=== PATIENT | male | born 1970 | race Caucasian/White ===

== ENCOUNTER 2018-08-27 11:27 | Emergency (ER) | payer MEDICARE, MEDICAID ==
[~2018-08-27] VITALS: Ht 193 cm; Wt 118.2 kg
[2018-08-27 11:41] VITALS: BP 146/82
[2018-08-27] MEDS ORDERED: ketorolac trometh inj. 60 MG/2 ML VIAL IM ONE (13:50)
[2018-08-27] MEDS ORDERED: HYDR-4353 PO (13:55)
[2018-08-27] MEDS ORDERED: CLON-527 PO (13:55)
[2018-08-27] MEDS ORDERED: TRAZ-218 PO (13:55)
== END 2018-08-27 14:04 | disposition home or self-care (01) ==
LOC: ER 11:28
DX: G89.29 Other chronic pain (principal); F41.9 Anxiety disorder, unspecified; Z76.0 Encounter for issue of repeat prescription; J45.909 Unspecified asthma, uncomplicated; Z88.6 Allergy status to analgesic agent; Z88.0 Allergy status to penicillin; Z59.0 Homelessness
CPT/HCPCS: 96372; 99283; J1885

== ENCOUNTER 2018-11-12 13:48 | Emergency (ER) | payer MEDICARE, MEDICAID ==
[~2018-11-12] VITALS: Ht 193 cm; Wt 113.6 kg
[~2018-11-12 13:48] MED LIST: CLON-527 PO; TRAZ-218 PO
[2018-11-12 13:52] VITALS: BP 117/85
[2018-11-12] MEDS ORDERED: ONDA4TAB6 PO (14:42)
[2018-11-12] MEDS ORDERED: HYDR-4353 PO (14:42)
[2018-11-12] MEDS ORDERED: acetaminophen 325mg tablet PO ONE (14:45)
[2018-11-12] MEDS ORDERED: ketorolac tromethamine 15mg/ml inj. IM ONE (14:50)
== END 2018-11-12 16:01 | disposition home or self-care (01) ==
LOC: ER 13:49
DX: S83.094A Other dislocation of right patella, initial encounter (principal); M23.8X1 Other internal derangements of right knee; J45.909 Unspecified asthma, uncomplicated; G89.29 Other chronic pain; Z98.890 Other specified postprocedural states; Z88.5 Allergy status to narcotic agent; Z88.0 Allergy status to penicillin; Z56.0 Unemployment, unspecified; X50.1XXA Overexertion from prolonged static or awkward postures, initial encounter; Y93.01 Activity, walking, marching and hiking; Y92.89 Other specified places as the place of occurrence of the external cause; Y99.9 Unspecified external cause status
CPT/HCPCS: 29505; 73564; 96372; 99284; J1885

== ENCOUNTER 2018-12-03 09:33 | Outpatient (CLI) | payer MEDICARE, MEDICAID ==
[~2018-12-03 09:33] MED LIST changes: +HYDR-4353 PO; +ONDA4TAB6 PO
[2018-12-03 09:36] VITALS: BP 149/95
== END 2018-12-03 10:05 | disposition home or self-care (01) ==
LOC: ORTHO 09:33
PROVIDERS: ATTEND Nurse Practitioner Family
DX: S83.421A Sprain of lateral collateral ligament of right knee, initial encounter (principal); J45.909 Unspecified asthma, uncomplicated; G89.29 Other chronic pain; Z98.890 Other specified postprocedural states; Z88.5 Allergy status to narcotic agent; Z88.0 Allergy status to penicillin; Z56.0 Unemployment, unspecified; X50.1XXA Overexertion from prolonged static or awkward postures, initial encounter; Y93.01 Activity, walking, marching and hiking; Y92.89 Other specified places as the place of occurrence of the external cause; Y99.9 Unspecified external cause status
CPT/HCPCS: 99213

== ENCOUNTER 2019-01-06 12:40 | Outpatient (CLI) | payer MEDICARE, MEDICAID ==
[~2019-01-06 12:40] MED LIST changes: -HYDR-4353 PO
== END 2019-01-06 23:59 | disposition home or self-care (01) ==
LOC: RAD 12:40
PROVIDERS: ATTEND Nurse Practitioner Family
DX: S83.421D Sprain of lateral collateral ligament of right knee, subsequent encounter (principal); M25.861 Other specified joint disorders, right knee; J45.909 Unspecified asthma, uncomplicated; G89.29 Other chronic pain; X58.XXXA Exposure to other specified factors, initial encounter; Y93.89 Activity, other specified; Y92.89 Other specified places as the place of occurrence of the external cause; Y99.8 Other external cause status
CPT/HCPCS: 73721

== ENCOUNTER 2019-02-11 06:47 | Day surgery (SDC) | payer MEDICARE, MEDICAID ==
[2019-02-03 15:54] LABS: BASOPHILS % (AUTO) 0.3 % (0-1); EOSINOPHILS # (AUTO) 0.1 X10'3 (0-0.9); LYMPHOCYTES # (AUTO) 2.3 X10'3 (1.1-4.8); MEAN CORPUSCULAR HEMOGLOBIN 28.9 PG (27.0-31.0); MEAN CORPUSCULAR HGB CONC 33.9 g/dL (33.0-36.5); MEAN CORPUSCULAR VOLUME 85.3 FL (78-98); MEAN PLATELET VOLUME 8.9 FL (7.4-10.4); MONOCYTES # (AUTO) 0.5 X10'3 (0-0.9); MONOCYTES % (AUTO) 6.1 % (2-12); NEUTROPHILS % (AUTO) 63.6 % (42-75); PRE OP HEMATOCRIT 46.8 % (42.0-52.0); PRE OP HEMOGLOBIN 15.9 g/dL (14.0-17.9); PRE OP PLATELET COUNT 219 X10'3 (140-440); RED BLOOD COUNT 5.49 X10'6 (4.70-6.10); RED CELL DISTRIBUTION WIDTH 13.4 % (11.5-14.5)
[2019-02-03 16:07] LABS: ALBUMIN 3.7 G/DL (3.4-5.0); ALBUMIN/GLOBULIN RATIO 1.2 (1.1-1.5); ALKALINE PHOSPHATASE 78 IU/L (46-116); BLOOD UREA NITROGEN 13 MG/DL (7-18); BUN/CREATININE RATIO 13.5 (5.4-32.0); CHLORIDE 106 MMOL/L (99-107); CREATININE 0.96 MG/DL (0.60-1.10); PRE OP ALT 31 U/L (30-65); PRE OP ANION GAP 7 (8-16); PRE OP AST 16 U/L (10-37); PRE OP BILIRUB, TOTAL 1.2 MG/DL (0.0-1.0); PRE OP GLUCOSE 88 MG/DL (70-104); PRE OP POTASSIUM 3.5 MMOL/L (3.4-5.1); PRE OP SODIUM 141 MMOL/L (135-145); TOTAL PROTEIN 6.9 G/DL (6.4-8.2); eGFR 83 ML/MIN
[2019-02-11] VITALS (12 sets, daily range): BP systolic 117–157; BP diastolic 77–98
[~2019-02-11] VITALS: Ht 193 cm; Wt 113.4 kg
[~2019-02-11 06:47] MED LIST changes: +ALBU8.5H8 INH; -CLON-527 PO; +ESOM40CA49 PO; +MULT-933 PO; -ONDA4TAB6 PO; +PARO10TA85 PO; -TRAZ-218 PO; +ceFAZolin 2gm in dextrose, iso 100 ML IV ONE; +famotidine 20mg tablet PO ONE; +iohexol 350MG/ML 100ml bottle IV ONE; +oxyCODONE SR 10mg (sust. release) tab -2 tabs (20mg) PO ONE; +ringers solution, lacted 1,000 ML IV SCH
[2019-02-11] MEDS ORDERED: ceFAZolin 1000mg inj ONE (07:03)
[2019-02-11] MEDS ORDERED: ROPIVAcaine 0.5% (5mg/ml) 30ml vial ONE (07:03)
[2019-02-11] MEDS ORDERED: ringers solution, lacted 1,000 ML IV SCH (07:32)
[2019-02-11] MEDS ORDERED: fentaNYL/PF 50MCG/1 ML 2ML syringe IV PRN (07:35)
[2019-02-11] MEDS ORDERED: HYDROmorphone inj. 0.5 MG/0.5 ML DISP.SYRIN IV PRN ×2 (07:35)
[2019-02-11] MEDS ORDERED: labetalol 20mg/4ml (5mg/ml) syringe IV PRN (07:35)
[2019-02-11] MEDS ORDERED: hydrALAZINE 20mg/ml inj. IV PRN (07:35)
[2019-02-11] MEDS ORDERED: ondansetron/PF 4mg/2ml inj IV PRN (07:35)
[2019-02-11] MEDS ORDERED: ketorolac trometh. 30mg/ml inj. ONE (08:51)
[2019-02-11] MEDS ORDERED: sevoflurane 250ml liquid IH ONE (08:51)
[2019-02-11] MEDS ORDERED: midazolam 2 mg/2 ml injection ONE (08:53)
[2019-02-11] MEDS ORDERED: fentaNYL/PF 50MCG/1 ML 2ML syringe ONE (08:53)
[2019-02-11] MEDS ORDERED: dexamethasone sod phosphate 4mg/ml inj. ONE (09:04)
[2019-02-11] MEDS ORDERED: ondansetron/PF 4mg/2ml inj ONE (09:04)
[2019-02-11] MEDS ORDERED: propofol inj 20 ML IV ONE (09:04)
[2019-02-11] MEDS ORDERED: LIDOcaine 2% (20mg/ml) 5ml vial ONE (09:04)
--- NOTE | 2019-02-11 10:36 | NUR ---
Received from OR via [facility], accompanied by Anesthesiologist DR ZUNIGA and report given by Anesthesiologist. PT AWAKE, DENIES PAIN, RIGHT KNEE W/HARSH WRAP COVERING DRSG/INCISION CDI, KNEE IMMOBILIZER IN PLACE. Addendum: 02/11/19 at 1102 by Patience Pleitez RN Amended: Links added.
[2019-02-11] MEDS: fentaNYL/PF 50MCG/1 ML 2ML syringe IV PRN ×4 (10:47→11:23)
== END 2019-02-11 12:36 | disposition home or self-care (01) ==
LOC: PAS 06:47
PROVIDERS: ATTEND Orthopaedic Surgery
DX: S83.511A Sprain of anterior cruciate ligament of right knee, initial encounter (principal); J45.909 Unspecified asthma, uncomplicated; F41.9 Anxiety disorder, unspecified; F32.9 Major depressive disorder, single episode, unspecified; X58.XXXA Exposure to other specified factors, initial encounter; Y93.89 Activity, other specified; Y92.89 Other specified places as the place of occurrence of the external cause; Y99.8 Other external cause status; Z88.0 Allergy status to penicillin; Z88.6 Allergy status to analgesic agent; Z79.899 Other long term (current) drug therapy; Z72.89 Other problems related to lifestyle; Z98.890 Other specified postprocedural states
CPT/HCPCS: 29888; 36415; 80053; 82948; 85025; 93005; C1713; J0690; J1100; J1885; J2001; J2250; J2405; J2704; J3010; L1832; Q9967; A6449; A7000; J2795; J7030; J7120

== ENCOUNTER 2019-11-16 15:44 | Emergency (ER) | payer MEDICARE, MEDICAID ==
[~2019-11-16] VITALS: Ht 193 cm; Wt 115.0 kg
[~2019-11-16 15:44] MED LIST changes: -ceFAZolin 2gm in dextrose, iso 100 ML IV ONE; -famotidine 20mg tablet PO ONE; -iohexol 350MG/ML 100ml bottle IV ONE; -oxyCODONE SR 10mg (sust. release) tab -2 tabs (20mg) PO ONE; -ringers solution, lacted 1,000 ML IV SCH
[2019-11-16 16:03] VITALS: BP 138/80
[2019-11-16] MEDS ORDERED: PRED20TA PO (16:53)
[2019-11-16] MEDS ORDERED: AZIT-72 PO (16:53)
--- NOTE | 2019-11-16 17:00 | NUR ---
PT SEEN AND DC'D BY PROVIDER
== END 2019-11-16 17:00 | disposition home or self-care (01) ==
LOC: ER 15:45
DX: J20.9 Acute bronchitis, unspecified (principal); J45.909 Unspecified asthma, uncomplicated; G89.29 Other chronic pain; F41.9 Anxiety disorder, unspecified; Z98.890 Other specified postprocedural states; Z56.0 Unemployment, unspecified; Z88.5 Allergy status to narcotic agent; Z88.0 Allergy status to penicillin; Z79.2 Long term (current) use of antibiotics; Z79.899 Other long term (current) drug therapy
CPT/HCPCS: 99283

== ENCOUNTER 2020-04-06 06:58 | Emergency (ER) | payer MEDICARE, MEDICAID ==
[~2020-04-06] VITALS: Ht 193 cm; Wt 113.6 kg
[2020-04-06] MEDS ORDERED: dexamethasone 4mg tablet PO ONE (07:15)
[2020-04-06] MEDS ORDERED: dexamethasone sod phosphate 10mg/ml inj PO ONE (07:25)
[2020-04-06] MEDS ORDERED: DOXY150T5 PO (07:32)
[2020-04-06 08:28] VITALS: BP 139/85
== END 2020-04-06 09:17 | disposition home or self-care (01) ==
LOC: ER 06:58
DX: K12.2 Cellulitis and abscess of mouth (principal); Z20.828 Contact with and (suspected) exposure to other viral communicable diseases; J45.909 Unspecified asthma, uncomplicated; G89.29 Other chronic pain; F41.9 Anxiety disorder, unspecified; Z98.890 Other specified postprocedural states; Z56.0 Unemployment, unspecified; Z88.5 Allergy status to narcotic agent; Z88.0 Allergy status to penicillin; Z79.899 Other long term (current) drug therapy
CPT/HCPCS: 36415; 87081; 87880; 93005; 99284; J1100; U0003

== ENCOUNTER 2020-04-06 15:22 | Emergency (ER) | payer MEDICARE, MEDICAID ==
[~2020-04-06] VITALS: Ht 193 cm; Wt 100.0 kg
[~2020-04-06 15:22] MED LIST changes: +DOXY150T5 PO
[2020-04-06] MEDS ORDERED: normal saline 1000ML IV soln IVB ONE (16:30)
[2020-04-06] MEDS ORDERED: CefTRIAXone/D5W-Rocephin 1gm 50 ML IV ONE (16:30)
[2020-04-06] MEDS ORDERED: DOXYCYCLINE 100MG CAPSULE PO STA (17:06)
[2020-04-06 17:10] LABS: BASOPHILS % (AUTO) 0.1 % (0-1); EOSINOPHILS % (AUTO) 0 % (0-6); LYMPHOCYTES # (AUTO) 0.8 X10'3 (1.1-4.8); MEAN PLATELET VOLUME 8.9 FL (7.4-10.4); MONOCYTES # (AUTO) 0.3 X10'3 (0-0.9); NEUTROPHILS # (AUTO) 8.2 X10'3 (1.8-7.7); NEUTROPHILS % (AUTO) 88.4 % (42-75); WHITE BLOOD COUNT 9.3 X10'3 (4.5-11.0)
[2020-04-06 17:11] LABS: HEMATOCRIT 48.3 % (42.0-52.0); HEMOGLOBIN 16.5 g/dl (14.0-17.9); LYMPHOCYTES % (AUTO) 8.4 % (21-51); MEAN CORPUSCULAR HEMOGLOBIN 29.5 PG (27.0-31.0); MEAN CORPUSCULAR HGB CONC 34.1 g/dL (33.0-36.5); MEAN CORPUSCULAR VOLUME 86.4 FL (78-98); MONOCYTES % (AUTO) 3.1 % (2-12); PLATELET COUNT 239 X10'3 (140-440); RED BLOOD COUNT 5.59 X10'6 (4.70-6.10); RED CELL DISTRIBUTION WIDTH 13.3 % (11.5-14.5)
[2020-04-06 17:33] LABS: ALANINE AMINOTRANSFERASE 31 U/L (12-78); ALBUMIN 4.1 G/DL (3.4-5.0); ALBUMIN/GLOBULIN RATIO 1.2 (1.1-1.5); ALKALINE PHOSPHATASE 94 IU/L (46-116); ANION GAP 11 (8-16); ASPARTATE AMINO TRANSFERASE 23 U/L (10-37); BILIRUBIN,TOTAL 0.8 MG/DL (0.1-1.0); BLOOD UREA NITROGEN 16 MG/DL (7-18); BUN/CREATININE RATIO 14.4 (5.4-32.0); CALCIUM 9.2 MG/DL (8.5-10.1); CHLORIDE 106 MMOL/L (99-107); CREATININE 1.11 MG/DL (0.60-1.10); GLUCOSE 166 MG/DL (70-104); SODIUM 141 MMOL/L (135-145); TOTAL CARBON DIOXIDE 23.9 MMOL/L (24-32); TOTAL PROTEIN 7.5 G/DL (6.4-8.2); eGFR 70 ML/MIN
[2020-04-06 18:49] LABS: MONOTEST NEGATIVE (Neg)
--- NOTE | 2020-04-06 19:04 | NUR ---
pt placed on enhanced precautions since he had a covid send out today and we do not know the results. Pt aware. Told PA the results of the mono are negative, to please d/c the pt.
[2020-04-06 19:16] VITALS: BP 137/94
== END 2020-04-06 19:17 | disposition home or self-care (01) ==
LOC: ER 15:23
DX: K12.2 Cellulitis and abscess of mouth (principal); J02.9 Acute pharyngitis, unspecified; J45.909 Unspecified asthma, uncomplicated; G89.29 Other chronic pain; F41.9 Anxiety disorder, unspecified; Z98.890 Other specified postprocedural states; Z72.89 Other problems related to lifestyle; Z56.0 Unemployment, unspecified; Z88.0 Allergy status to penicillin; Z88.5 Allergy status to narcotic agent; Z79.2 Long term (current) use of antibiotics; Z79.899 Other long term (current) drug therapy
CPT/HCPCS: 36415; 80053; 85025; 86308; 93005; 96365; 99285; J0696; J7030; 99284

== ENCOUNTER 2020-12-10 01:18 | Emergency (ER) | payer MEDICARE, MEDICAID ==
[~2020-12-10] VITALS: Ht 193 cm; Wt 118.2 kg
[~2020-12-10 01:18] MED LIST changes: -DOXY150T5 PO
[2020-12-10] MEDS ORDERED: HYDROcodone/acetaminophen 5mg/325mg tablet PO ONE (03:25)
[2020-12-10] MEDS ORDERED: naproxen 500mg tablet PO ONE (03:25)
[2020-12-10] MEDS ORDERED: SULF1TAB49 PO (03:25)
[2020-12-10] MEDS ORDERED: NAPR-56 PO (03:25)
[2020-12-10] MEDS ORDERED: sulfamethoxazole/trimethoprim DS (800/160mg) tablet PO ONE (03:25)
[2020-12-10 03:36] VITALS: BP 128/78
== END 2020-12-10 03:37 | disposition home or self-care (01) ==
LOC: ER 01:19
DX: L03.312 Cellulitis of back [any part except buttock and flank] (principal); J45.909 Unspecified asthma, uncomplicated; G89.29 Other chronic pain; F41.9 Anxiety disorder, unspecified; Z72.89 Other problems related to lifestyle; Z56.0 Unemployment, unspecified; Z88.5 Allergy status to narcotic agent; Z88.0 Allergy status to penicillin; Z79.899 Other long term (current) drug therapy
CPT/HCPCS: 99284

== ENCOUNTER 2022-01-29 09:31 | Emergency (ER) | payer MEDICARE, MEDICAID ==
[~2022-01-29] VITALS: Ht 193 cm; Wt 240.0 kg
[~2022-01-29 09:31] MED LIST changes: +ALBU8.5H17 INH; -ALBU8.5H8 INH
[2022-01-29 10:23] LABS: BASOPHILS % (AUTO) 0.4 % (0-1); EOSINOPHILS % (AUTO) 0.8 % (0-6); HEMATOCRIT 48.5 % (42.0-52.0); HEMOGLOBIN 16.4 g/dl (14.0-17.9); LYMPHOCYTES # (AUTO) 1.6 X10'3 (1.1-4.8); LYMPHOCYTES % (AUTO) 31.1 % (21-51); MEAN CORPUSCULAR HEMOGLOBIN 28.6 PG (27.0-31.0); MEAN CORPUSCULAR HGB CONC 33.9 g/dL (33.0-36.5); MEAN CORPUSCULAR VOLUME 84.4 FL (78-98); MEAN PLATELET VOLUME 9.4 FL (7.4-10.4); MONOCYTES # (AUTO) 0.3 X10'3 (0-0.9); MONOCYTES % (AUTO) 5.5 % (2-12); NEUTROPHILS # (AUTO) 3.3 X10'3 (1.8-7.7); NEUTROPHILS % (AUTO) 62.2 % (42-75); PLATELET COUNT 216 X10'3 (140-440); RED BLOOD COUNT 5.75 X10'6 (4.70-6.10); RED CELL DISTRIBUTION WIDTH 13.6 % (11.5-14.5); WHITE BLOOD COUNT 5.3 X10'3 (4.5-11.0)
--- NOTE | 2022-01-29 10:36 | NUR ---
PATIENT STATES THAT HE HAD A PRE-OP EKG LAST MONTH THAT WAS ABNORMAL. STATES THAT HE IS SCHEDULED TO HAVE CATARACT SURGERY ON HIS RIGHT EYE IN THE NEAR FUTURE. REPORTS OCCASIONAL, INTERMITTENT PAINS IN LEFT CHEST WALL WITH PALPITATIONS. IN ADDITION, PATIENT REPORTS NAGGING PAIN IN RIGHT UPPER QUAD OF ABDOMEN X OVER ONE MONTH.
[2022-01-29 10:37] LABS: ALANINE AMINOTRANSFERASE 27 U/L (12-78); ALBUMIN/GLOBULIN RATIO 1.2 (1.1-1.5); ALKALINE PHOSPHATASE 86 IU/L (46-116); ANION GAP 11 (8-16); ASPARTATE AMINO TRANSFERASE 18 U/L (10-37); BILIRUBIN,TOTAL 0.8 MG/DL (0.1-1.0); BLOOD UREA NITROGEN 13 MG/DL (7-18); BUN/CREATININE RATIO 12.9 (5.4-32.0); CHLORIDE 108 MMOL/L (99-107); CREATININE 1.01 MG/DL (0.60-1.10); GLUCOSE 117 MG/DL (70-104); POTASSIUM 4.5 MMOL/L (3.5-5.1); SODIUM 144 MMOL/L (135-145); TOTAL CARBON DIOXIDE 25.3 MMOL/L (24-32); TOTAL PROTEIN 7.4 G/DL (6.4-8.2); eGFR 78 ML/MIN
[2022-01-29 11:11] LABS: MAGNESIUM 2.3 MG/DL (1.5-2.4)
[2022-01-29 11:58] LABS: D-DIMER < 0.19 MG/L FEU (0-0.50)
[2022-01-29 13:34] VITALS: BP 137/87
== END 2022-01-29 13:35 | disposition home or self-care (01) ==
LOC: ER 09:31
DX: R07.9 Chest pain, unspecified (principal); R00.2 Palpitations; Z88.5 Allergy status to narcotic agent; Z88.0 Allergy status to penicillin; Z79.899 Other long term (current) drug therapy; J45.909 Unspecified asthma, uncomplicated; G89.29 Other chronic pain; F41.9 Anxiety disorder, unspecified; Z56.0 Unemployment, unspecified
CPT/HCPCS: 36415; 71045; 80053; 83735; 83880; 84484; 85025; 85379; 93005; 99285

== ENCOUNTER 2022-04-02 16:03 | Emergency (ER) | payer MEDICARE, MEDICAID ==
[~2022-04-02] VITALS: Ht 193 cm; Wt 109.1 kg
[2022-04-02 16:31] LABS: BASOPHILS % (AUTO) 0.5 % (0-1); EOSINOPHILS # (AUTO) 0.1 X10'3 (0-0.9); EOSINOPHILS % (AUTO) 1.1 % (0-6); HEMATOCRIT 47.2 % (42.0-52.0); HEMOGLOBIN 16.4 g/dl (14.0-17.9); LYMPHOCYTES # (AUTO) 2.4 X10'3 (1.1-4.8); LYMPHOCYTES % (AUTO) 31.8 % (21-51); MEAN CORPUSCULAR HEMOGLOBIN 29.5 PG (27.0-31.0); MEAN CORPUSCULAR HGB CONC 34.8 g/dL (33.0-36.5); MEAN CORPUSCULAR VOLUME 84.9 FL (78-98); MEAN PLATELET VOLUME 8.9 FL (7.4-10.4); MONOCYTES # (AUTO) 0.6 X10'3 (0-0.9); MONOCYTES % (AUTO) 7.6 % (2-12); NEUTROPHILS # (AUTO) 4.5 X10'3 (1.8-7.7); PLATELET COUNT 231 X10'3 (140-440); RED BLOOD COUNT 5.56 X10'6 (4.70-6.10); WHITE BLOOD COUNT 7.7 X10'3 (4.5-11.0)
[2022-04-02 16:46] LABS: ALANINE AMINOTRANSFERASE 35 U/L (12-78); ALBUMIN 3.8 G/DL (3.4-5.0); ALBUMIN/GLOBULIN RATIO 1.1 (1.1-1.5); ALKALINE PHOSPHATASE 96 IU/L (46-116); ANION GAP 10 (8-16); ASPARTATE AMINO TRANSFERASE 19 U/L (10-37); BILIRUBIN,TOTAL 0.8 MG/DL (0.1-1.0); BLOOD UREA NITROGEN 15 MG/DL (7-18); BUN/CREATININE RATIO 13.5 (5.4-32.0); CALCIUM 8.8 MG/DL (8.5-10.1); CHLORIDE 107 MMOL/L (99-107); CREATININE 1.11 MG/DL (0.60-1.10); GLUCOSE 100 MG/DL (70-104); POTASSIUM 4.5 MMOL/L (3.5-5.1); SODIUM 144 MMOL/L (135-145); TOTAL CARBON DIOXIDE 26.7 MMOL/L (24-32); TOTAL PROTEIN 7.3 G/DL (6.4-8.2); eGFR 69 ML/MIN
[2022-04-02 22:52] VITALS: BP 142/83
== END 2022-04-02 23:33 | disposition home or self-care (01) ==
LOC: ER 16:03
DX: R07.89 Other chest pain (principal); J45.909 Unspecified asthma, uncomplicated; G89.29 Other chronic pain; F41.9 Anxiety disorder, unspecified; F32.A Depression, unspecified; Z87.01 Personal history of pneumonia (recurrent); Z98.890 Other specified postprocedural states; Z72.89 Other problems related to lifestyle; Z56.0 Unemployment, unspecified; Z88.5 Allergy status to narcotic agent; Z88.0 Allergy status to penicillin; Z79.899 Other long term (current) drug therapy
CPT/HCPCS: 36415; 71045; 80053; 83880; 84484; 85025; 93005; 99285